=== PATIENT | female | born 1975 | race Caucasian/White ===

== ENCOUNTER → 2021-03-21 17:14 | Outpatient (CLI) | payer OTHER, SELFPAY ==
--- NOTE | ~2021-03-21 | MM_ITS ---
EXAMINATION: MM screening dayanna BI w dianne HISTORY: Screening TECHNIQUE: Craniocaudal and mediolateral oblique 3-D tomosynthesis images were obtained and synthetic 2-D images were generated. CAD analysis was submitted and interpreted. COMPARISON: 02/18/2018 BREAST PARENCHYMAL COMPOSITION: The breasts are extremely dense, which lowers the sensitivity of mamm ography. FINDINGS: There is no evidence of suspicious mass, calcification, or architectural distortion to sugg est malignancy in either breast. There has been no suspicious interval change. IMPRESSION: 1. No mammographic evidence of malignancy. 2. Recommend routine screening mammography in one year. BI-RADS Category 1: Negative Reviewed, dictated and finalized at location A.
== END ==
PROVIDERS: Visit Provider Obstetrics & Gynecology
DX: Z12.31 Encounter for screening mammogram for malignant neoplasm of breast (principal)
CPT/HCPCS: 77063; 77067

== ENCOUNTER → 2022-05-12 11:12 | Outpatient (CLI) | payer OTHER, SELFPAY ==
--- NOTE | ~2022-05-12 | MM_ITS ---
EXAMINATION: MM screening dayanna BI w dianne HISTORY: Screening mammogram TECHNIQUE: Craniocaudal and mediolateral oblique 3-D tomosynthesis images were obtained and synthetic 2-D images were generated. CAD analysis was submitted and interpreted. COMPARISON: 02/18/2021, 07/01/2019, 02/18/2018 bilateral screening mammogram examinations BREAST PARENCHYMAL COMPOSITION: The breasts are heterogeneously dense, which may obscure small masses . FINDINGS: New 2.4 x 3.4 mm circumscribed opacity in the posterior lower outer right breast, not evide nt on 03/21/2021. Diagnostic right mammogram and right breast ultrasound examination are recommended. Otherwise there is no evidence of suspicious mass, calcification, or architectural distortion to sugg est malignancy in either breast. There has been no other suspicious interval change. IMPRESSION: 1. New 2.4 x 3.4 mm circumscribed opacity in posterior lower outer right breast 2. Diagnostic right mammogram and right breast ultrasound examination are recommended BI-RADS Category 0: Incomplete: Needs additional imaging evaluation. Reviewed, dictated and finalized at location A. PING MACHINE OPERATOR IMPRESSION: 1. New 2.4 x 3.4 mm circumscribed opacity in posterior lower outer right breast 2. Diagnostic right mammogram and right breast ultrasound examination are recom mended BI-RADS Category 0: Incomplete: Needs additional imaging evaluation.
== END ==
PROVIDERS: PCP Family Medicine; Visit Provider Obstetrics & Gynecology
DX: Z12.31 Encounter for screening mammogram for malignant neoplasm of breast (principal); R92.8 Other abnormal and inconclusive findings on diagnostic imaging of breast
CPT/HCPCS: 77063; 77067

== ENCOUNTER → 2022-06-03 09:18 | Outpatient (CLI) | payer OTHER, SELFPAY ==
--- NOTE | ~2022-06-03 | MMUS_ITS ---
EXAMINATION: MM diagnostic dayanna RT w dianne, US breast RT limited HISTORY: Right breast mass on screening mammogram TECHNIQUE: Additional 3-D tomosynthesis images of the right breast were performed and synthetic 2-D i mages were generated. CAD analysis was submitted and interpreted. High resolution limited right breas t ultrasound was performed. COMPARISON: 05/12/2022, 03/21/2021, 07/01/2019 FINDINGS: MAMMOGRAPHIC FINDINGS: There is a 3 mm obscured, round, low density mass in the posterior third of the lower outer breast at the 8:00 location 5 cm from the nipple. ULTRASOUND: There is a 3 mm cyst at the 8:00 location 4 cm from the nipple corresponding to the mammographic find ing in question. Additional cysts are noted in the lower outer quadrant of the breast. At the 9:00 lo cation 5 cm from the nipple there are adjacent circumscribed para low, hypoechoic masses with posteri or acoustic enhancement and no internal vascularity measuring 1.2 x 0.4 cm and 1.8 x 0.4 cm. IMPRESSION: 1. Probably benign masses at the 9:00 location. 2. Recommend 6 month follow-up right diagnostic mammogram and ultrasound. BI-RADS category 3, probably benign findings. Reviewed, dictated and finalized at location F. NCIAL COST ANALYST IMPRESSION: 1. Probably benign masses at the 9:00 location. 2. Recommend 6 month follow-up right diagnostic mammogram and ultrasound. BI-RADS category 3, probably benign findings.
== END ==
PROVIDERS: PCP Family Medicine; Visit Provider Nurse Practitioner Obstetrics & Gynecology
DX: R92.8 Other abnormal and inconclusive findings on diagnostic imaging of breast (principal)
CPT/HCPCS: 76642; 77061; 77065; G0279

== ENCOUNTER → 2023-06-22 09:15 | Outpatient (CLI) | payer OTHER, SELFPAY ==
--- NOTE | ~2023-06-22 | MMUS_ITS ---
EXAMINATION: MM diagnostic dayanna BI w dianne, US breast BILAT complete HISTORY: Probable benign right breast masses reported on 12/08/2022 diagnostic mammogram and ultrasound examination TECHNIQUE: ML, MLO and CC 3-D tomosynthesis images of both breasts were performed and synthetic 2-D i mages were generated. CAD analysis was submitted and interpreted. High resolution bilateral complete breast ultrasound examination including all 4 quadrants and subareolar areas was performed. COMPARISON: 12/08/2022 diagnostic right mammogram and complete right breast ultrasound 06/03/2022 diagnostic right mammogram and limited right breast ultrasound 05/12/2022, 03/21/2021 bilateral screening mammogram examinations BREAST PARENCHYMAL COMPOSITION: The breasts are heterogeneously dense, which may obscure small masses . FINDINGS: MAMMOGRAPHIC FINDINGS: No suspicious mass or architectural distortion, malignant calcification, skin thickening or retractio n or significant new or developing density is detected. ULTRASOUND: There are multiple bilateral scattered cysts and complicated cysts. No suspicious mass or suspicious shadowing of either breast is detected. IMPRESSION: 1. Benign findings 2. Routine annual mammographic screening is recommended BI-RADS Category 2: Benign finding(s). Reviewed, dictated and finalized at location A. BILITY HEARING OFFICER IMPRESSION: 1. Benign findings 2. Routine annual mammographic screening is recommended BI-RADS Category 2: Benign finding(s).
== END ==
PROVIDERS: PCP Nurse Practitioner; Visit Provider Nurse Practitioner
DX: N63.0 Unspecified lump in unspecified breast (principal); R92.8 Other abnormal and inconclusive findings on diagnostic imaging of breast
CPT/HCPCS: 76641; 77062; 77066; G0279

== ENCOUNTER 2024-10-20 15:34 | Outpatient (CLI) | payer OTHER, SELFPAY ==
--- NOTE | ~2024-10-20 | MM_ITS ---
EXAMINATION: MM screening dayanna BI w dianne HISTORY: Screening TECHNIQUE: Craniocaudal and mediolateral oblique 3-D tomosynthesis images were obtained and synthetic 2-D images were generated. CAD analysis was submitted and interpreted. COMPARISON: Comparison to multiple prior studies sequentially, with oldest reviewed study dated 06/06. BREAST PARENCHYMAL COMPOSITION: Dense: The breasts are extremely dense, which lowers the sensitivity of mammography. FINDINGS: There are developing scattered is obscured masses in the right breast posteriorly. There is a focal asymmetry centrally in the left breast on MLO view, posterior third. There are no suspicious calcifications or architectural distortion. IMPRESSION: 1. Developing right breast masses. New focal left breast asymmetry. 2. Additional mammographic views and possible breast ultrasound are recommended. BI-RADS Category 0: Incomplete: Needs additional imaging evaluation. Reviewed, dictated and finalized at location B. IMPRESSION: 1. Developing right breast masses. New focal left breast asymmetry. 2. Additional mammographic views and possible breast ultrasound are recommended . BI-RADS Category 0: Incomplete: Needs additional imaging evaluation.
== END 2024-10-20 15:35 | disposition home or self-care (01) ==
LOC: MICIMG 15:35
PROVIDERS: PCP Family Medicine; Visit Provider Student in an Organized Health Care Education/Training Program
DX: Z12.31 Encounter for screening mammogram for malignant neoplasm of breast (principal); R92.8 Other abnormal and inconclusive findings on diagnostic imaging of breast
CPT/HCPCS: 77063; 77067

== ENCOUNTER 2024-11-09 13:25 | Outpatient (CLI) | payer OTHER, SELFPAY ==
--- NOTE | ~2024-11-09 | MMUS_ITS ---
EXAMINATION: MM diagnostic dayanna BI w dianne, US breast BI complete HISTORY: Follow-up breast asymmetries TECHNIQUE: Additional 3-D tomosynthesis images of the breasts were performed and synthetic 2-D images were generated. CAD analysis was submitted and interpreted. High resolution bilateral complete breas t ultrasound was performed. COMPARISON: Comparison to multiple prior studies sequentially, with oldest reviewed study dated 03/21. BREAST PARENCHYMAL COMPOSITION: Dense: The breasts are extremely dense, which lowers the sensitivity of mammography. FINDINGS: MAMMOGRAPHIC FINDINGS: No outer breast asymmetries compress with spot compatible with superimposed fibroglandular tissue. No discrete mass, architectural distortion or suspicious calcifications are identified. ULTRASOUND: Complete US of all 4 quadrants of the breast/s and retroareolar region was reviewed. Right breast: There are multiple cysts of the right breast. At 8:00, 3 cm from the nipple there is an oval hypoechoic 4 mm mass with parallel orientation, circumscribed margins and slightly irregular la teral margins. No internal vascularity or posterior features. Left breast ultrasound: Multiple cysts of the left breast. There is a cluster of microcysts at 12:00 near the nipple. There is a oval hypoechoic mass with parallel orientation and the left breast at 2:0 0, 2 cm from the nipple, likely benign. IMPRESSION: 1. Irregular shaped hypoechoic right breast mass at 8:00, 3 cm from the nipple measuring 4 mm. Ultras ound-guided biopsy recommended. Probable benign hypoechoic left breast mass at 2:00, 2 cm measuring 8 mm. Six-month follow-up ultrasound recommended. 2. Ultrasound-guided right breast biopsy recommended. BI-RADS category 4, suspicious findings. Reviewed, dictated and finalized at location A. IMPRESSION: 1. Irregular shaped hypoechoic right breast mass at 8:00, 3 cm from the nipple measuring 4 mm. Ultrasound-guided biopsy recommended. Probable benign hypoechoi c left breast mass at 2:00, 2 cm measuring 8 mm. Six-month follow-up ultrasound recommended. 2. Ultrasound-guided right breast biopsy recommended. BI-RADS category 4, suspicious findings.
--- OUTSIDE RECORDS SUMMARY | 2024-11-09 13:36 | XMS_ITS | Referral Summary ---
Author Organization [address] Address [address] [place] [id number] Care Team Providers Care Microsoft Windows Engineer Name Role Phone Maame Redman MD Primary Care Provider [phone] Allergies No known active allergies Medications No known medications Active Problems No known active problems Social History Tobacco Use Types Packs/Day Years Used Date Smoking Tobacco: Former Cigarettes Tobacco Cessation:Counseling Given: Not Answered Personal Safety Answer Date Recorded Getting School Help Needed Not on file 07/12 Comments Unknown Sex and Gender Information Value Date Recorded Sex Assigned at Not on file Legal Sex Female 9:08 PM SUMMER SCHOOL COORDINATOR Gender Identity Not on file Sexual Orientation Not on file Last Filed Vital Signs Vital Sign Reading Time Taken Comments Blood Pressure 106/82 08/15/2022 9:45 AM SUMMER SCHOOL COORDINATOR Pulse 76 08/15/2022 9:45 AM SUMMER SCHOOL COORDINATOR Temperature 36.8 C (98.2 F) 08/15/2022 9:45 AM SUMMER SCHOOL COORDINATOR Respiratory Rate 18 08/15/2022 9:45 AM SUMMER SCHOOL COORDINATOR Oxygen Saturation 98% 08/15/2022 9:45 AM SUMMER SCHOOL COORDINATOR Inhaled Oxygen Concentration - - Weight 70.3 kg (155 lb) 08/15/2022 9:45 AM SUMMER SCHOOL COORDINATOR Height 172.7 cm (5' 8 ) 08/15/2022 9:45 AM SUMMER SCHOOL COORDINATOR Body Mass Index 23.57 08/15/2022 9:45 AM SUMMER SCHOOL COORDINATOR Plan of Treatment Not on file Care Teams Microsoft Windows Engineer Relationship Specialty Start Date End Date Maame Redman MD PCP - General Family Medicine 08/15/22
--- OUTSIDE RECORDS SUMMARY | 2024-11-09 13:36 | XMS_ITS | Clinical Summary ---
Author Organization [address] Address [address] [place] [id number] Care Team Providers Care Licensing Director Name Role Phone Maame Redman MD Primary Care Provider [phone] Allergies No known active allergies Medications No [...] on file Legal Sex Female 9:08 PM CORRESPONDENCE SPECIALIST Gender Identity Not on file Sexual Orientation Not on file Obstetrics History Last Filed Vital Signs Vital Sign Reading Time Taken Comments Blood Pressure 106/82 08/15/2022 9:45 AM CORRESPONDENCE SPECIALIST Pulse 76 08/15/2022 9:45 AM CORRESPONDENCE SPECIALIST Temperature 36.8 C (98.2 F) 08/15/2022 9:45 AM CORRESPONDENCE SPECIALIST Respiratory Rate 18 08/15/2022 9:45 AM CORRESPONDENCE SPECIALIST Oxygen Saturation 98% 08/15/2022 9:45 AM CORRESPONDENCE SPECIALIST Inhaled Oxygen Concentration - - Weight 70.3 kg (155 lb) 08/15/2022 9:45 AM CORRESPONDENCE SPECIALIST Height 172.7 cm (5' 8 ) 08/15/2022 9:45 AM CORRESPONDENCE SPECIALIST Body Mass Index 23.57 08/15/2022 9:45 AM CORRESPONDENCE SPECIALIST Plan of Treatment Health Maintenance Due Date Last Done Comments Breast Cancer Screening-Mammogram 1977 Cervical Cancer Screening 1977 Colon Cancer Screening-Colonoscopy 1977 Depression Screening 1977 Hepatitis C Screening 1977 DTaP/Tdap/Td Vaccine (1 - Tdap) 1988 Hepatitis B Screening 1995 Regular Well Visit/Exam 18-64 1995 Influenza Vaccine (#1) 2024 Pneumococcal vaccine <65 Aged Out No longer eligible based on patient's age to complete this topic Care Teams Licensing Director Relationship Specialty Start Date End Date Maame Redman MD PCP - General Family Medicine 08/15/22
--- OUTSIDE RECORDS SUMMARY | 2024-11-09 13:36 | XMS_ITS | Clinical Summary ---
[facility] Address [address] [place] [address] Phone Care Team Providers Care Health Physics Technician Name Role Phone Unavailable Primary Care Provider Unavailabl e Medications No known medications Active Problems No known active problems Social History Tobacco Use Types Packs/Day Years Used Date Smoking Tobacco: Never Smokeless Tobacco: Never Tobacco Cessation:Counseling Given: Not Answered Comments Unknown Sex and Gender Information Value Date Recorded Sex Assigned at Not on file Legal Sex Female 10:42 AM MILITARY ADMINISTRATIVE TECHNICIAN Gender Identity Not on file Sexual Orientation Not on file Last Filed Vital Signs Vital Sign Reading Time Taken Comments Blood Pressure 106/78 06/19/2022 1:30 PM MILITARY ADMINISTRATIVE TECHNICIAN Pulse 69 06/19/2022 1:30 PM MILITARY ADMINISTRATIVE TECHNICIAN Temperature 36.9 C (98.4 F) 06/19/2022 1:30 PM MILITARY ADMINISTRATIVE TECHNICIAN Respiratory Rate - - Oxygen Saturation 97% 06/19/2022 1:30 PM MILITARY ADMINISTRATIVE TECHNICIAN Inhaled Oxygen Concentration - - Weight 72.6 kg (160 lb) 06/19/2022 1:30 PM MILITARY ADMINISTRATIVE TECHNICIAN Height 172.7 cm (5' 8 ) 06/19/2022 1:30 PM MILITARY ADMINISTRATIVE TECHNICIAN Body Mass Index 24.33 06/19/2022 1:30 PM MILITARY ADMINISTRATIVE TECHNICIAN Plan of Treatment Health Maintenance Due Date Last Done Comments DTAP/TDAP/TD VACCINES (1 - Tdap) 1996 HEPATITIS B VACCINES (1 of 3 - 19+ 3-dose series) 1996 HPV/Cotest (21-29) 1998 CERVICAL CANCER SCREENING 2007 HPV/Cotest (30-65) 2007 PAP SMEAR 2007 COLORECTAL SCREENING 2022 Colorectal Cancer Screening 2022 FIT-DNA Q 3 years 2022 FIT/FOBT Q 1 year 2022 Flex Sig/CT Colonography Q 5 years 2022 BREAST CANCER SCREENING 06/03/2023 06/03/20 22, 06/03/2022, 05/12/2022, Additional history exists INFLUENZA VACCINE (#1) 2024 Procedures Procedure Name Priority Date/Time Associated Diagnosis Comments MAMMO 3D ADAIR DIAGNOSTIC MARY AT W OR WO CAD Routine 06/03/2022 from Last 3 Months or Most Recently Relevant to Health Maintenance Results * MAMMO DIAG BILAT 3D ADAIR W OR WO CAD (06/03/2022) Anatomical Region Laterality Modality Breast Bilateral Mammography us Abstract Provider MAMMO ORDERABLES Final Result from Last 3 Months or Most Recently Relevant to Health Maintenance
--- OUTSIDE RECORDS SUMMARY | 2024-11-09 13:36 | XMS_ITS | Clinical Summary ---
Author Organization [facility] [employer] Address [address] [place] [address] Care Team Providers Care Shoulder Sawyer Name Role Phone Unavailable Primary Care Provider Unavailabl e Source Comments [facility] [facility],non-owned Affiliates and Associated Physician Practices is amultiple site organization consisting of ambulatory clinics and hospital sitesin [place], [place], [place] and [place]. This disclosure is being madepursuant to the Care Everywhere program and may not contain all information available regarding this patient. Last updated 18.[facility] [facility] Allergies No known active allergies Medications * Be aware that medications may not be up to date on this document. Alwaysverify current medications with the patient. No known medications Social History Tobacco Use Types Packs/Day Years Used Date Smoking Tobacco: Never Smokeless Tobacco: Never Comments Unknown Sex and Gender Information Value Date Recorded Sex Assigned at Not on file Legal Sex Female 8:46 PM BARGE MASTER Gender Identity Not on file Sexual Orientation Not on file Last Filed Vital Signs Vital Sign Reading Time Taken Comments Blood Pressure 110/62 06/17/2017 10:45 AM BARGE MASTER Pulse 78 06/17/2017 10:45 AM BARGE MASTER Temperature 37.3 C (99.1 F) 06/17/2017 10:45 AM BARGE MASTER Respiratory Rate 20 06/17/2017 10:45 AM BARGE MASTER Oxygen Saturation - - Inhaled Oxygen Concentration - - Weight 74.8 kg (165 lb) 06/17/2017 10:45 AM BARGE MASTER Height - - Body Mass Index - - Plan of Treatment Health Maintenance Due Date Last Done Comments COLOGUARD (AGES 45-75) - COL ON CA SCREENING 1977 COLON MONITORING 1977 COLONOSCOPY - COLON CA SCREENING 1977 CT COLONOGRAPHY - COLON CA SCREENING 1977 Colorectal Cancer Screening 1977 FIT - COLON CA SCREENING 1977 FLEX SIG - COLON CA SCREENING 1977 LIPID TESTING 1977 MAMMOGRAM 1977 HIV SCREENING 1992 HEPATITIS C SCREENING 05/31/1995 DTAP/TDAP/TD VACCINES (1 - Tdap) 1996 HEPATITIS B VACCINE (1 of 3 - 19+ 3-dose series) 1996 COVID-19 VACCINE (1 - 2023-2 5 season) 2024 DEPRESSION SCREENING 07/06/2024 INFLUENZA VACCINE (Season Ended) 2025 ZOSTER VACCINE (1 of 2) 2027 HIB VACCINE Aged Out No longer eligi ble based on patient's age to complete this topic HPV VACCINE Aged Out No longer eligi ble based on patient's age to complete this topic MENINGOCOCCAL (Group B) VACC INE SHARED DECISION-MAKING Aged Out No longer eligibl e based on patient's age to complete this topic MENINGOCOCCAL GROUPS A/C/Y/W VACCINE Aged Out No longer eligible b ased on patient's age to complete this topic PNEUMOCOCCAL VACCINE Aged Out No long er eligible based on patient's age to complete this topic
--- OUTSIDE RECORDS SUMMARY | 2024-11-09 13:36 | XMS_ITS | Data Portability ---
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 [address], [facility] 06/08/2023 13:43:23 05/16/2024 text/html Annual GYNReport ed bypatient.History:no gynecologic complaints Menstrual cycle:Normal menses Urinary symptoms:No hematuria; No incontinence Vulva:No genital lesion Vagina:Normal vaginal discharge Breast:No breast pain; No breast lump; No nipple discharge Current Contraception:Condom s Sexual complaints:No sexual complaints; No pain during intercourse; Normal libido Menopausal Symptoms:No menopausal symptoms; Normal vaginal lubrication Psychological symptoms:No depression; No anxiety; No PMDD Preventive measures:Encourage self breast examination; Encourage regular exercise; Encourage no tobacco use; Encourage regular mammograms starting age 40 Patient presents for annual well woman exam. Patient denies concerns today.Patient to have breast exam, pelvic exam, and pap smear through health department. DELORES LEOS NP [address], [place], [address], [facility] 05/16/2024 12:59:59 OBGyn Episode Ob Episode Information Episode Created Date Number of Fetuses Patient Bloodtype Patient rh Status Prepregnancy Weight lbs Domestic Partner Domestic Partner Phone Father Name Vocational Rehabilitation Consultant Status 02/26/20 21 1 CLOSED Fetus Data First Name Last Name Admitted to NICU Weight (g) Sex Living Outcome Pediatric Complications Fetus ID Race Codes Race Delivery Type [id number] M [id number] Vaginal Delivery Pernell Calculation Initial Pernell Date Initial Exam Date Initial Exam Provider Initial Ultrasound Date Last Menstrual Period Date Ultra Sound Weeks Gestation 0 Eighteen To Twenty Week Pernell Update Ultra Sound Date Fundal Height At Umbil Quickening Date Ultra Sound Latest Weeks Gestation Final Pernell Confirmed By Final Pernell Confirmed Date Final Pernell Date Ultra Sound Latest Days Gestation 0 0 Menstrual History Last Menstrual Date Menses Monthly On Bcp Conception Prior Menses Frequency Hcg Plus Date Menarche Onset Age Delivery Information Delivery Date Delivery Type Labor Anesthesia Weeks Gestation Incision Type Labor Labor Length Hrs Delivered By Post Complications Tubal Sterilization Discharge Date Comments 7 39 Discharge Information Feeding Method Contraceptive Method Maternal HG B and HCT Levels Ob Episode Information Episode Created Date Number of Fetuses Patient Bloodtype Patient rh Status Prepregnancy Weight lbs Domestic Partner Domestic Partner Phone Father Name Vocational Rehabilitation Consultant Status 02/26/20 21 1 CLOSED Fetus Data First Name Last Name Admitted to NICU Weight (g) Sex Living Outcome Pediatric Complications Fetus ID Race Codes Race Delivery Type , Induced [id number] Pernell Calculation Initial Pernell Date Initial Exam Date Initial Exam Provider Initial Ultrasound Date Last Menstrual Period Date Ultra Sound Weeks Gestation 0 Eighteen To Twenty Week Pernell Update Ultra Sound Date Fundal Height At Umbil Quickening Date Ultra Sound Latest Weeks Gestation Final Pernell Confirmed By Final Pernell Confirmed Date Final Pernell Date Ultra Sound Latest Days Gestation 0 0 Menstrual History Last Menstrual Date Menses Monthly On Bcp Conception Prior Menses Frequency Hcg Plus Date Menarche Onset Age Delivery Information Delivery Date Delivery Type Labor Anesthesia Weeks Gestation Incision Type Labor Labor Length Hrs Delivered By Post Complications Tubal Sterilization Discharge Date Comments 4 Discharge Information Feeding Method Contraceptive Method Maternal HG B and HCT Levels Ob Episode Information Episode Created Date Number of Fetuses Patient Bloodtype Patient rh Status Prepregnancy Weight lbs Domestic Partner Domestic Partner Phone Father Name Vocational Rehabilitation Consultant Status 02/26/20 21 1 CLOSED Fetus Data First Name Last Name Admitted to NICU Weight (g) Sex Living Outcome Pediatric Complications Fetus ID Race Codes Race Delivery Type [phone] M [id number] Vaginal Delivery Pernell Calculation Initial Pernell Date Initial Exam Date Initial Exam Provider Initial Ultrasound Date Last Menstrual Period Date Ultra Sound Weeks Gestation 0 Eighteen To Twenty Week Pernell Update Ultra Sound Date Fundal Height At Umbil Quickening Date Ultra Sound Latest Weeks Gestation Final Pernell Confirmed By Final Pernell Confirmed Date Final Pernell Date Ultra Sound Latest Days Gestation 0 0 Menstrual History Last Menstrual Date Menses Monthly On Bcp Conception Prior Menses Frequency Hcg Plus Date Menarche Onset Age Delivery Information Delivery Date Delivery Type Labor Anesthesia Weeks Gestation Incision Type Labor Labor Length Hrs Delivered By Post Complications Tubal Sterilization Discharge Date Comments 1 40 Discharge Information Feeding Method Contraceptive Method Maternal HG B and HCT Levels
== END 2024-11-09 13:26 | disposition home or self-care (01) ==
LOC: ANHIMG 13:26
PROVIDERS: PCP Family Medicine; Visit Provider Student in an Organized Health Care Education/Training Program
DX: R92.2 Inconclusive mammogram (principal); R92.8 Other abnormal and inconclusive findings on diagnostic imaging of breast
CPT/HCPCS: 76641; 77062; 77066; G0279

== ENCOUNTER 2024-12-08 11:04 | Outpatient (CLI) | payer OTHER, SELFPAY ==
--- NOTE | ~2024-12-08 | MR_ITS ---
Bilateral Breast MRI with and without Gadolinium Indication: 49-year-old female with family history of breast cancer in mother. In addition, recent di agnostic mammography and ultrasound examination completed on 11/09/2024 showed an irregular shaped hypo echoic right breast mass at 8:00 location recommended for ultrasound-guided biopsy and a probably louie ign hypoechoic left breast mass at 12:00 location. She has greater than 20% lifetime risk of breast c ancer. She presents for problem solving bilateral breast MR. Technique: Bilateral breast MRI was performed with the patient in the prone projection using a dedica solange breast coil and parallel imaging. The following sequences were obtained: Axial T1-weighted imagin g, T2 fat-sat imaging, and axial fat-saturated 3-D SPGR imaging before and and at 1 minute intervals for 4 time points after the intravenous administration of 20 cc of gadolinium. Subtraction imaging w as performed. Interpretation is being performed with the benefit of [employer]. Right breast: There is mild background parenchymal enhancement. There is prominent background parench ymal nodular enhancement pattern. No suspicious postcontrast enhancement is seen. There is no abnorma l enhancement in the area of mammographic or sonographic abnormality. No abnormal skin thickening, pe ctoralis muscle enhancement, or abnormal lymphadenopathy is identified. Left breast: There is mild background parenchymal enhancement. Prominent background pattern, nodular enhancement pattern is noted. No suspicious postcontrast enhancement is seen. No suspicious abnormali ty seen in the area of mammographic or sonographic abnormality. No abnormal skin thickening, pectoral is muscle enhancement, or abnormal lymphadenopathy is identified. Impression: 1. No MRI evidence of malignancy in either breast. There is no MRI abnormality that correlates to the areas of concern on the mammogram and sonographic examination. 2. The chest wall and axillary portion of the examination unremarkable. Recommendation: There is existing recommendation for biopsy of right breast 8:00 location and 6 month follow-up of le ft breast 2:00 lesion. Consider high-risk screening bilateral breast MRI Reviewed, dictated and finalized at location B. Impression: 1. No MRI evidence of malignancy in either breast. There is no MRI abnormality that correlates to the areas of concern on the mammogram and sonographic examin ation. 2. The chest wall and axillary portion of the examination unremarkable. Recommendation: There is existing recommendation for biopsy of right breast 8:00 location and 6 month follow-up of left breast 2:00 lesion. Consider high-risk screening bilateral breast MRI
--- OUTSIDE RECORDS SUMMARY | 2024-12-08 12:14 | XMS_ITS | Clinical Summary ---
Author Organization [address] Address [address] [place] [address] Care Team Providers Care Training Instructor Name Role Phone Maame Redman MD Primary Care Provider [phone] Allergies No known active allergies Medications No [...] on file Legal Sex Female 9:08 PM EXPLOSIVE OPERATOR Gender Identity Not on file Sexual Orientation Not on file Obstetrics History Last Filed Vital Signs Vital Sign Reading Time Taken Comments Blood Pressure 106/82 08/15/2022 9:45 AM EXPLOSIVE OPERATOR Pulse 76 08/15/2022 9:45 AM EXPLOSIVE OPERATOR Temperature 36.8 C (98.2 F) 08/15/2022 9:45 AM EXPLOSIVE OPERATOR Respiratory Rate 18 08/15/2022 9:45 AM EXPLOSIVE OPERATOR Oxygen Saturation 98% 08/15/2022 9:45 AM EXPLOSIVE OPERATOR Inhaled Oxygen Concentration - - Weight 70.3 kg (155 lb) 08/15/2022 9:45 AM EXPLOSIVE OPERATOR Height 172.7 cm (5' 8) 08/15/2022 9:45 AM EXPLOSIVE OPERATOR Body Mass Index 23.57 08/15/2022 9:45 AM EXPLOSIVE OPERATOR Plan of Treatment Health Maintenance Due Date Last Done Comments Breast Cancer Screening-Mammogram 1977 Cervical Cancer Screening 1977 Colon Cancer Screening-Colonoscopy 1977 Depression Screening 1977 Hepatitis C Screening 1977 DTaP/Tdap/Td Vaccine (1 - Tdap) 1988 Hepatitis B Screening 1995 Regular Well Visit/Exam 18-64 1995 Influenza Vaccine (Season Ended) 2025 Pneumococcal vaccine <65 Aged Out No longer eligible based on patient's age to complete this topic Care Teams Training Instructor Relationship Specialty Start Date End Date Maame Redman MD PCP - General Family Medicine 08/15/22
--- OUTSIDE RECORDS SUMMARY | 2024-12-08 12:14 | XMS_ITS | Referral Summary ---
Author Organization [address] Address [address] [place] [address] Care Team Providers Care Toy Assembly Supervisor Name Role Phone Maame Redman MD Primary Care Provider [phone] Allergies No known active allergies Medications No [...] on file Legal Sex Female 9:08 PM ADMINISTRATOR SOCIAL WELFARE Gender Identity Not on file Sexual Orientation Not on file Last Filed Vital Signs Vital Sign Reading Time Taken Comments Blood Pressure 106/82 08/15/2022 9:45 AM ADMINISTRATOR SOCIAL WELFARE Pulse 76 08/15/2022 9:45 AM ADMINISTRATOR SOCIAL WELFARE Temperature 36.8 C (98.2 F) 08/15/2022 9:45 AM ADMINISTRATOR SOCIAL WELFARE Respiratory Rate 18 08/15/2022 9:45 AM ADMINISTRATOR SOCIAL WELFARE Oxygen Saturation 98% 08/15/2022 9:45 AM ADMINISTRATOR SOCIAL WELFARE Inhaled Oxygen Concentration - - Weight 70.3 kg (155 lb) 08/15/2022 9:45 AM ADMINISTRATOR SOCIAL WELFARE Height 172.7 cm (5' 8) 08/15/2022 9:45 AM ADMINISTRATOR SOCIAL WELFARE Body Mass Index 23.57 08/15/2022 9:45 AM ADMINISTRATOR SOCIAL WELFARE Plan of Treatment Not on file Care Teams Toy Assembly Supervisor Relationship Specialty Start Date End Date Maame Redman MD PCP - General Family Medicine 08/15/22
--- OUTSIDE RECORDS SUMMARY | 2024-12-08 12:14 | XMS_ITS | Clinical Summary ---
Author Organization [facility] Address [address] [place] [address] Care Team Providers Care Stone Grader Name Role Phone Unavailable Primary Care Provider Unavailabl e Source Comments [facility],non-owned Affiliates and Associated Physician Practices is amultiple site organization consisting of ambulatory clinics and hospital sitesin [place], [place], [place] and [place]. This disclosure is being madepursuant to the Care Everywhere program and may not contain all information available regarding this patient. Last updated 18.[facility] Allergies No known active allergies Medications * [...] on file Legal Sex Female 8:46 PM STOCK CONTROLLER Gender Identity Not on file Sexual Orientation Not on file Last Filed Vital Signs Vital Sign Reading Time Taken Comments Blood Pressure 110/62 06/17/2017 10:45 AM STOCK CONTROLLER Pulse 78 06/17/2017 10:45 AM STOCK CONTROLLER Temperature 37.3 C (99.1 F) 06/17/2017 10:45 AM STOCK CONTROLLER Respiratory Rate 20 06/17/2017 10:45 AM STOCK CONTROLLER Oxygen Saturation - - Inhaled Oxygen Concentration - - Weight 74.8 kg (165 lb) 06/17/2017 10:45 AM STOCK CONTROLLER Height - - Body Mass Index - [...]
--- OUTSIDE RECORDS SUMMARY | 2024-12-08 12:14 | XMS_ITS | Clinical Summary ---
[facility] Address [address] [place] [address] Phone Care Team Providers Care Obstetrics Gyn Name Role Phone Unavailable Primary Care Provider Unavailabl e Medications No known medications Active Problems No known active problems Social History Tobacco Use Types Packs/Day Years Used Date Smoking Tobacco: Never Smokeless Tobacco: Never Tobacco Cessation:Counseling Given: Not Answered Comments Unknown Sex and Gender Information Value Date Recorded Sex Assigned at Not on file Legal Sex Female 10:42 AM JUDICIAL CLERK Gender Identity Not on file Sexual Orientation Not on file Last Filed Vital Signs Vital Sign Reading Time Taken Comments Blood Pressure 106/78 06/19/2022 1:30 PM JUDICIAL CLERK Pulse 69 06/19/2022 1:30 PM JUDICIAL CLERK Temperature 36.9 C (98.4 F) 06/19/2022 1:30 PM JUDICIAL CLERK Respiratory Rate - - Oxygen Saturation 97% 06/19/2022 1:30 PM JUDICIAL CLERK Inhaled Oxygen Concentration - - Weight 72.6 kg (160 lb) 06/19/2022 1:30 PM JUDICIAL CLERK Height 172.7 cm (5' 8) 06/19/2022 1:30 PM JUDICIAL CLERK Body Mass Index 24.33 06/19/2022 1:30 PM JUDICIAL CLERK Plan of Treatment Health Maintenance Due Date [...]
--- OUTSIDE RECORDS SUMMARY | 2024-12-08 12:14 | XMS_ITS | Data Portability ---
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 Patient will come back in a year unless there are new symptoms. Not available 03/24/2022 12:00:06 05/16/2024 05/16/2024 Annual gynecological exam performed. Patient will come back in a year unless there are new symptoms. [email or web address] Not available 05/04/2024 15:18:24 Plan of Treatment Reminders Order Date Submit Date Provider Last Modified By Organization Details Last Modified Time Details Appointments None recorded. Lab pap, IG + HR HPV 2023 [facility] [employer] [facility], [address], [place], [address], 10:31:49 Referral None recorded. Procedures None recorded. Surgeries None recorded. Imaging MAMMO, screening, digital, bilateral 2023 024 [facility], [address], [address], [place], [address], 5 17:19:43 MAMMO, diagnostic , digital, bilateral 2022 023 [facility], [address], [place], [address], 4 05:01:34 US, breast, bilateral 2022 023 [facility], [address], [place], [address], 4 05:01:34 MAMMO, screening, bilateral 2021 022 [facility], [address], [place], [address], 10:16:26 Medication Orders None recorded. Patient TargetsNo targets recorded. Patient InstructionsNo instructions recorded. Reason for Referral None Reported. Results Created Date Observation Date Name Description Value Unit Range Abnormal Flag Note LastModifiedBy Organization Detail LastModifiedTime 03/22/20 21 03/21/2021 MAMMO , scree raina, bilat eral No observ ation record ed. [facility] [address], [place], [address], 03/22/2021 22:41:40 05/12/20 22 05/12/2022 MAMMO , scree raina, bilat eral No observ ation record ed. [address], [place], [address], 05/14/2022 10:16:26 05/12/20 22 05/12/2022 MAMMO , scree raina, bilat eral No observ ation record ed. [address], [place], [address], 05/14/2022 14:29:44 11/30/06/03/2022 MAMMO , diagn ostic , unila teral No observ ation record ed. [email or web address] [place] [facility] [address], [place], [address], 08/27/2022 17:20:47 06/22/20 23 06/22/2023 MAMMO , diagn ostic , digit al, bilat eral No observ ation record ed. [email or web address] [place] [facility] [address], [place], [address], 07/07/2023 11:38:59 10/21/19 25 10/20/2024 MAMMO , scree raina, digit al, bilat eral No observ ation record ed. [email or web address] [place] [facility] [address], [place], [address], 11/08/2024 15:43:03 10/22/19 25 10/20/2024 MAMMO , scree raina, digit al, bilat eral No observ ation record ed. [email or web address] [place] [address], [place], [address], 11/08/2024 16:21:42 11/10/19 25 11/09/2024 MAMMO , diagn ostic , digit al, bilat eral No observ ation record ed. [email or web address] [place] [address], [place], [address], 11/14/2024 10:35:39 Result Notes None recorded. Problems Name Problem SNOMED Code Status Onset Date Resolution Date Notes Provider Name and Address Organization Details Recorded Time Benign neoplasm of body of uterus 35196150 Completed 201302/25/2021 Benign neoplasm of corpus uteri;Pr actice ID: 0001 Eliane Mills MD [address], [place], [address], [facility] 12:11:27 Irregula r periods 29211518 Completed 201302/25/2021 Irregula r menstrua l cycle;Pr actice ID: 0001 Eliane Mills MD [address], [place], [address], [facility] 1 12:11:37 Menstrua tion finding Completed 201302/25/2021 Menorrha kal Excessiv e Menstrua tion;Pra ctice ID: 0001 Eliane Mills MD [address], [place], [address], [facility] 1 12:11:39 Adult health examinat ion Completed 201402/25/2021 Routine general medical examinat ion at a health care facility ;Practic e ID: 0001 Eliane Mills MD [address], [place], [address], [facility] 12:11:25 Speciali zed medical examinat ion Completed 201402/25/2021 Routine gynecolo gical examinat ion;Prac jerrell ID: 0001 Eliane Mills MD [address], [place], [address], [facility] 1 12:12:04 Screenin g for malignan t neoplasm of cervix Completed 201402/25/2021 Pap Smear;Pr actice ID: 0001 Eliane Mills MD [address], [place], [address], [facility] 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 12:12:[address] Concept Completed 201702/25/2021 Encntr for general adult medical exam w/o abnormal findings ;Practic e ID: 0001 Eliane Mills MD [address], [place], [address], [facility] 12:12:00 Screenin g for malignan t neoplasm of rectum Completed 201702/25/2021 Encounte r for screenin g for malignan t neoplasm of rectum;P ractice ID: 0001 Eliane Mills MD [address], [place], [address], [facility] 12:11:56 Premenst rual tension syndrome 13252231 Completed 201402/25/2021 PMS;Jayce rded Elsewher e: No Locat ion: [facility] S ource: EHR Supply And Distribution Manager elizabeth: N Chiekh ce ID: 0001 Enrique lable Time: 10:00:00 AM Eliane Mills MD [address], [place], [address], [facility] 12:11:50 Speciali zed medical examinat ion Completed 201105/03/2012 Gynecolo gical Examinat ion;Jayce rded Elsewher e: No Locat ion: [facility] S ource: EHR Supply And Distribution Manager elizabeth: N Cheikh ce ID: 0001 Enrique lable Time: 10:30:[address] AM MD [address], [place], [address], [facility] 12:12:04 Postoper ative follow-u p visit Completed 201302/25/2021 Follow-u p examinat ion, followin g unspecif ied surgery; Recorded Elsewher e: No Locat ion: [facility] S ource: EHR Supply And Distribution Manager elizabeth: N Cheikh ce ID: 0001 Enrique lable Time: 10:00:00 AM Eliane Mills MD [address], [place], [address], [facility] 1 12:11:45 Hypertro phy of uterus 149050220 Completed 201302/25/2021 Hypertro phy of uterus;R ecorded Elsewher e: No Locat ion: [facility] S ource: EHR Supply And Distribution Manager elizabeth: N Practi ce ID: 0001 Enrique lable Time: 11:00:00 AM Eliane Mills MD [address], [place], [address], [facility] 1 12:11:31 Screenin g for malignan t neoplasm of cervix Completed 201005/03/2012 Screenin g for malignan t neoplasm s of the cervix;R ecorded Elsewher e: No Locat ion: [facility]: N Barrieti ce ID: 0001 Enrique lable Time: 01:15:00 PM Eliane Mills MD [address], [place], [address], [facility] 1 12:11:54 Routine antenata l care Completed 201002/25/2021 Supervis ion of other normal pregnanc y;Practi ce ID: 0001 Eliane Mills MD [address], [place], [address], [facility] 1 12:11:52 Delivery normal 82260453 Completed 201002/25/2021 Normal delivery ;Practic e ID: 0001 Eliane Mills MD [address], [place], [address], [facility] 12:11:30 Single live from singleto n pregnanc y 623849836 Completed 201002/25/2021 Mother with single liveborn ;Practic e ID: 0001 Eliane Mills MD [address], [place], [address], [facility] 12:11:58 Postpart um care Completed 201002/25/2021 Routine postpart um follow-u p;Practi ce ID: 0001 Eliane Mills MD [address], [place], [address], [facility] 12:11:47 Inflamma tory disorder of breast 732359783 Completed 201002/25/2021 Inflamma tory disease of breast;P ractice ID: 0001 Eliane Mills MD [address], [place], [address], [facility] 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 12:11:43 Problem Notes None recorded. Procedures Surgical History Date Name Laterality Status Provider Name and Address Organization Details Recorded Time 06/03/20 22 Date of Last Mammogram completed Kizzy White [facility] 05/16/2024 12:15:29 04/21/20 19 Date of Last Pap Smear completed Amanda Obrien [facility] 03/24/2022 12:01:39 07/06/19 14 Hysteroscopy completed Belia Lilly [facility] 06/05/2023 19:12:13 07/06/18 94 termination of completed Belia Lilly [facility] 06/05/2023 19:12:22 Imaging Results None recorded. Procedure Notes None recorded. Medical Equipment None [...] IN THE MORNING 08/15 completed Prescrib ed Elsewher e: No Locat ion: Carlamoira linda [facility] odify By: subhash padilla DateTime : 01/16/20 15 11:20:36 AM Not Available Not Available Not Available NuvaRing 0.12 mg-0.015 mg/24 hr vaginal insert 1 vaginal ring by vaginal route every month leave in place for 3 weeks, remove for 1 week 08/25 completed Prescrib ed Elsewher e: No Locat ion: Mario mckeon [facility] odify By: subhash padilla DateTime : 08/15/19 16 01:00:00 PM Not Available Not Available Not Available Synthroid 137 mcg tablet take 1 tablet by oral route every day 04/11 completed Prescrib ed Elsewher e: Yes Loca tion: Zenonrebecca linda [facility] odify By: dory padilla DateTime : 04/15/20 11 03:38:56 PM Not Available Not Available Not Available Ortho-Cyc manny (28) 0.25 mg-35 mcg tablet take 1 tablet by oral route every day 07/13 completed Prescrib ed Elsewher e: No Locat ion: Zenon linda [facility] odify By: james andrea DateTime : 05/03/20 12 10:30:00 AM Not Available Not Available Not Available Lo Loestrin Fe 1 mg-10 mcg (24)/10 mcg (2) tablet take 1 tablet by oral route every day for 28 days 05/13 completed Prescrib ed Elsewher e: No Locat ion: Zenonrebecca linda [facility] odify By: africa padilla DateTime : 04/16/20 11 01:15:00 PM Not Available Not Available Not Available Vitals Date Recorded Body height Body mass index (BMI) Body weight Systolic blood pressure Diastolic blood pressure Provider Name and Address Organization Details Last Updated DateTime 02/25/2021 170.18 cm 25.2 kg/m2 66576.37 g 114 mm[Hg] 76 mm[Hg] Zenia Marie [facility] 1 11:46:57 Date Recorded Systolic blood pressure Diastolic blood pressure Provider Name and Address Organization Details Last Updated DateTime 03/24/2022 122 mm[Hg] 78 mm[Hg] Tracey Lauren, [facility]- [address], [place], [address], [facility] 03/25/2022 09:41:27 Date Recorded Body height Body weight Body mass index (BMI) Provider Name and Address Organization Details Last Updated DateTime 03/24/2022 171.45 cm 76530.78 g 24.7 kg/m2 Amanda Obrien [facility] 03/24/2022 12:00:57 Date Recorded Body height Body mass index (BMI) Body weight Systolic blood pressure Diastolic blood pressure Provider Name and Address Organization Details Last Updated DateTime 05/16/2024 171.45 cm 25.2 kg/m2 41008.56 g 102 mm[Hg] 70 mm[Hg] Kizzy Cindy [facility] 4 12:20:15 Date Recorded Body height Body mass index (BMI) Body weight Systolic blood pressure Diastolic blood pressure Provider Name and Address Organization Details Last Updated DateTime 06/08/2023 171.45 cm 24.8 kg/m2 94283.37 g 122 mm[Hg] 78 mm[Hg] Belia Lilly [facility] 3 12:14:31 Social History Question Answer Notes LastModified by Organizat ion Details LastModified Time Tobacco Smoking Status Never Smoker Belia Lilly [facility], [facility] 06/08/2023 12:14:58 Do You Have An Advance Directive? No Information n ot available 03/24/2022 If You Are , What Was Your Level Of Alcohol Consumption Prior To ? None [email or web address] Information not available 06/08/2023 How Many Years Have You Consumed Alcohol? 20 Information not available 06/08/2023 Are You Blind Or Do You Have Difficulty Seeing? No Information n ot available 03/24/2022 What Is Your Level Of Caffeine Consumption? Moderate Information not available 03/24/2022 How Much Tobacco Do You Chew? None Information not available 03/24/2022 In The 14 Days Before Symptom Onset, Have You Had Close Contact With A Laboratory-confirm ed COVID-19 While That Case Was Ill? No Information n ot available 03/24/2022 In The 14 Days Before [...] Of Diet Are You Following? REGULAR Information n ot available 03/24/2022 What Is The Highest Grade Or Level Of School You Have Completed Or The Highest Degree You Have Received? [id number] Information not available 03/24/2022 Are There Any Guns Present In Your [...] Information not available 03/24/2022 Do You Use Sunscreen Routinely? Yes Information not available 03/24/2022 Has Tobacco Cessation Counseling Been Provided? No [email or web address] Information not available 06/08/2023 Have You Used IV Drugs? No Information not available 03/24/2022 Sex: Unknown Functional Status Question Answer Note LastModified by Organizat ion Details LastModified Time Do you use any illicit or recreational drugs? No [email or web address] Information not available 02/25/2021 Do you or have you ever used any other forms of tobacco or nicotine? No Information not available 06/08/2023 What is your level of alcohol consumption? Occasional Information not available 03/24/2022 Are you able to walk? 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 Moderate Information not available 03/24/2022 Mental Status Question Answer Note LastModified by Organization D etails LastModified Time Do you feel stressed (tense, restless, nervous, or anxious, or unable to sleep at night)? [id number] Information not available 03/24/2022 Family History Relationship Description Onset Age of this Age Resolved Age Notes LastModified by Organization Details LastModified Time Maternal Aunt Malignant neoplasm of uterus [email or web address] Not available 06/08 12:14:57 Maternal Aunt Malignant neoplasm of ovary [email or web address] Not available 06/08 12:14:57 Maternal Grandmother Diabetes mellitus Not available 06/08 12:14:57 Maternal Grandmother Malignant tumor of breast [email or web address] Not available 06/08 12:14:57 Maternal Grandmother Hypertensive disorder [email or web address] Not available 06/08 12:14:57 Mother Malignant tumor of breast Not available 2021 12:01:11 Medical History Condition Response Allergies (Food, seasonal, environmental ) N Other N Blood Transfusion N Drug/Latex Allergies/Reactions N Breast Cancer N Dermatologic Disorders N Lung Disease N [...] SNOMED-CT Code Diagnosis ICD10 Code Diagnosis Note [id number] Eliane Mills MD [place] [address] [address] 02/25/2021 11:37:18 02/25/2021 16:15:25 Gynecologic examination 82741442 Z01.419 [id number] [facility] [address] [address] 03/24/2022 11:46:48 03/25/2022 16:28:17 Gynecologic examination 18845134 Z01.419 Suggested Calcium with Vitamin D 1200-1500m g daily. Patient advised to get an annual flu shot in the fall and she could obtain at [facility] or [facility] take care clinic. Also to obtain TDap vaccinatio n [...] bimanual exam completed- WNL Screening mammography 24 901970 Z12.31 [id number] Ailyn CindyhannaCOREEN [place] [address] [address] 06/08/2023 12:02:15 06/08/2023 14:09:07 Gynecologic examination 39879202 Z01.419 WWEBC - condoms, happy with this [...] the fall and she could obtain at [facility] or [facility] care clinic. Also to obtain TDap vaccinatio n [...] or respond to this email. Breast lump [id number] N63 .0 [id number] Steve Chambers MD [place] [address] [address] 05/16/2024 12:06:03 05/16/2024 13:01:14 Screening mammography 59704402 Z12.31 Gynecologi c examination 68350897 Z01.419 Annual gynecologi colten exam performed. Patient [...] or email. mammogram- pt to schedule through [facility] ; order given colon cancer screening - [...] ID Melendez Member ID Guarantor Name 02/25/2021 [facility] Emy R Kira [id number] Emy R Kira 03/24/2022 [facility] Emy R Kira [id number] Emy R Kira 06/08/2023 [facility] Emy R Kira [id number] Emy R Kira 05/16/2024 [facility] Emy R Kria [id number] Emy R Kira Notes Date Note Type [...] concerns-none Eliane Mills MD [address], [place], [address], [place] [facility] 02/25/2021 14:14:08 03/24/2022 text/html Annual [...] yearly pap smears (q3-5yr pap/hpv unless abn) COREEN Godfrey-BC [address], [place], [address], [facility] 03/25/2022 09:41:56 06/08/2023 text/html Annual GYNReport [...] a breast specialist 1 yr ago at [facility] for consult mother, maternal grandmother, maternal great grandmother with BC all 60smother with negative genetic testing COREEN Rogers [address], [place], [address], [facility] 06/08/2023 13:43:23 05/16/2024 text/html Annual GYNReport [...] smear through health department. DELORES LEOS NP [address], [place], [address], [facility] 05/16/2024 12:59:59 OBGyn Episode Ob Episode Information Episode Created Date Number of Fetuses Patient Bloodtype Patient rh Status Prepregnancy Weight lbs Domestic Partner Domestic Partner Phone Father Name Solar Sales Assessor Status 02/26/20 21 1 CLOSED Fetus Data First Name Last Name Admitted to NICU Weight (g) Sex Living Outcome Pediatric Complications Fetus ID Race Codes Race Delivery Type 3259.96 5704 M [id number] Vaginal Delivery Pernell Calculation Initial Pernell Date [...] Domestic Partner Domestic Partner Phone Father Name Solar Sales Assessor Status 02/26/20 21 1 CLOSED Fetus Data First Name Last Name Admitted to NICU Weight (g) Sex Living Outcome Pediatric Complications Fetus ID Race Codes Race Delivery Type , Induced [id number] Pernell Calculation Initial Pernell Date Initial Exam [...] Post Complications Tubal Sterilization Discharge Date Comments 199 4 Discharge Information Feeding Method Contraceptive Method Maternal HG B and HCT Levels Ob Episode Information Episode Created Date Number of Fetuses Patient Bloodtype Patient rh Status Prepregnancy Weight lbs Domestic Partner Domestic Partner Phone Father Name Solar Sales Assessor Status 02/26/20 21 1 CLOSED Fetus Data First Name Last Name Admitted to NICU Weight (g) Sex Living Outcome Pediatric Complications Fetus ID Race Codes Race Delivery Type 3628.73 6 M [id number] Vaginal Delivery Pernell Calculation Initial Pernell Date [...]
== END 2024-12-08 11:05 | disposition home or self-care (01) ==
PROVIDERS: PCP Family Medicine; Visit Provider Surgery
DX: N63.13 Unspecified lump in the right breast, lower outer quadrant (principal); Z12.39 Encounter for other screening for malignant neoplasm of breast; R92.8 Other abnormal and inconclusive findings on diagnostic imaging of breast; R92.343 Mammographic extreme density, bilateral breasts; Z80.3 Family history of malignant neoplasm of breast
CPT/HCPCS: 77049; A9577; C8908

== ENCOUNTER 2024-12-09 08:31 | Outpatient (CLI) | payer OTHER, SELFPAY ==
--- NOTE | ~2024-12-09 | MMUS_ITS ---
PROCEDURE: US breast biopsy RT w image, MM post biopsy diagnostic RT CLINICAL HISTORY: 49-year-old female with a suspicious irregular hypoechoic right breast mass at 8:00 , 3 cm from the nipple. She presents for ultrasound-guided core needle biopsy of the right breast mas s. COMPARISON: 11/09/2024 Following informed consent including risks, benefits, and possible complications, the patient was bro ught to the ultrasound suite. A time-out procedure was performed. A preliminary ultrasound of the ri t breast was performed, redemonstrating the targeted lesion at 8:00, 3 cm from the nipple. The patient was prepped and draped in the usual sterile fashion. 1% lidocaine was instilled into the subcutaneous tissues. 1% lidocaine with epinephrine was injected into the deep tissues just inferior to the lesion. Approximately 15cc lidocaine was administered. A small skin chago was made. Multiple co re samples were obtained with a 14-gauge biopsy needle. A post biopsy coil shaped marker was placed a t the biopsy site. Postprocedural mammogram of the right breast in craniocaudal and mediolateral projections reveal the post biopsy metal marker in good position. The patient tolerated the procedure well and was without i mmediate postprocedural complications. IMPRESSION: Successful ultrasound guided biopsy of right breast mass. A post biopsy metal marker was placed at the biopsy site, which is seen on postprocedural mammogram. The patient tolerated the procedure well without immediate postprocedure complications. The patient w as given postprocedural instructions and sent home in stable condition. Reviewed, dictated and finalized at location B. IMPRESSION: Successful ultrasound guided biopsy of right breast mass. A post bi opsy metal marker was placed at the biopsy site, which is seen on postprocedura l mammogram. The patient tolerated the procedure well without immediate postprocedure compli cations. The patient was given postprocedural instructions and sent home in sta ble condition.
--- OUTSIDE RECORDS SUMMARY | 2024-12-09 08:37 | XMS_ITS | Clinical Summary ---
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 Pulse 76 08/15/2022 9:45 AM [employer]OCKROOM WORKER Temperature 36.8 C (98.2 F) 08/15/2022 9:45 AM [employer]OCKROOM WORKER Respiratory Rate 18 08/15/2022 9:45 AM STOCKROOM WORKER Oxygen Saturation 98% 08/15/2022 9:45 AM STOCKROOM WORKER Inhaled Oxygen Concentration - - Weight 70.3 kg (155 lb) 08/15/2022 9:45 AM STOCKROOM WORKER Height 172.7 cm (5' 8) 08/15/2022 9:45 AM STOCKROOM WORKER Body Mass Index 23.57 08/15/2022 9:45 AM STOCKROOM WORKER Plan of Treatment Health Maintenance Due Date [...] age to complete this topic Care Teams Children'S Librarian Relationship Specialty Start Date End Date Maame Redman MD PCP - General Family Medicine 08/15/22
--- OUTSIDE RECORDS SUMMARY | 2024-12-09 08:37 | XMS_ITS | Clinical Summary ---
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 Gender Identity Not on file Sexual Orientation Not on file Last Filed Vital Signs Vital Sign Reading Time Taken Comments Blood Pressure 106/78 06/19/2022 1:30 PM INDUSTRIAL TECHNICIAN Pulse 69 06/19/2022 1:30 PM INDUSTRIAL TECHNICIAN Temperature 36.9 C (98.4 F) 06/19/2022 1:30 PM INDUSTRIAL TECHNICIAN Respiratory Rate - - Oxygen Saturation 97% 06/19/2022 1:30 PM INDUSTRIAL TECHNICIAN Inhaled Oxygen Concentration - - Weight 72.6 kg (160 lb) 06/19/2022 1:30 PM INDUSTRIAL TECHNICIAN Height 172.7 cm (5' 8) 06/19/2022 1:30 PM INDUSTRIAL TECHNICIAN Body Mass Index 24.33 06/19/2022 1:30 PM INDUSTRIAL TECHNICIAN Plan of Treatment Health Maintenance Due [...]
--- OUTSIDE RECORDS SUMMARY | 2024-12-09 08:37 | XMS_ITS | Referral Summary ---
Author Organization [address] Address [address] [place] [address] Care Team Providers Care Patient Intake Representative Name Role Phone Maame Redman MD Primary Care Provider Allergies No known active allergies Medications No [...] on file Legal Sex Female 9:08 PM SKI MOLDER Gender Identity Not on file Sexual Orientation Not on file Last Filed Vital Signs Vital Sign Reading Time Taken Comments Blood Pressure 106/82 08/15/2022 9:45 AM SKI MOLDER Pulse 76 08/15/2022 9:45 AM SKI MOLDER Temperature 36.8 C (98.2 F) 08/15/2022 9:45 AM SKI MOLDER Respiratory Rate 18 08/15/2022 9:45 AM SKI MOLDER Oxygen Saturation 98% 08/15/2022 9:45 AM SKI MOLDER Inhaled Oxygen Concentration - - Weight 70.3 kg (155 lb) 08/15/2022 9:45 AM SKI MOLDER Height 172.7 cm (5' 8) 08/15/2022 9:45 AM SKI MOLDER Body Mass Index 23.57 08/15/2022 9:45 AM SKI MOLDER Plan of Treatment Not on file Care Teams Patient Intake Representative Relationship Specialty Start Date End Date Maame Redman MD PCP - General Family Medicine 08/15/22
--- OUTSIDE RECORDS SUMMARY | 2024-12-09 08:37 | XMS_ITS | Clinical Summary ---
Author Organization [facility] [employer] Address [address] [place] [address] Care Team Providers Care Hollow Handle Bench Worker Name Role Phone Unavailable Primary Care Provider Unavailabl e Source Comments [facility] [employer],non-owned Affiliates and Associated Physician Practices is amultiple site organization consisting of ambulatory clinics and hospital sitesin [place], [place], [place] and [place]. This disclosure is being madepursuant to the Care Everywhere program and may not contain all information available regarding this patient. Last updated 18.[facility] [employer] Allergies No known active allergies Medications * [...] on file Legal Sex Female 8:46 PM JAIL OFFICER Gender Identity Not on file Sexual Orientation Not on file Last Filed Vital Signs Vital Sign Reading Time Taken Comments Blood Pressure 110/62 06/17/2017 10:45 AM JAIL OFFICER Pulse 78 06/17/2017 10:45 AM JAIL OFFICER Temperature 37.3 C (99.1 F) 06/17/2017 10:45 AM JAIL OFFICER Respiratory Rate 20 06/17/2017 10:45 AM JAIL OFFICER Oxygen Saturation - - Inhaled Oxygen Concentration - - Weight 74.8 kg (165 lb) 06/17/2017 10:45 AM JAIL OFFICER Height - - Body Mass Index - [...]
--- NOTE | 2024-12-09 10:48 | S_PTH ---
PATIENT: Emy Malone LOC: [facility] U#:[id number] AGE/SX: 49/F ROOM: RE12/09/[address]: Danica Lopez MD : 1975 BED: DIS: 12/09/2024 SPEC #: [id number] RECD: 12/09/24 12:47 STATUS: AMBER REQ #: [id number] JASVIR: 12/09/24 10:[address]: Danica Lopez DEPT: [facility] Surgical RECD BY: Anna Marie Fischer ENTERED: 12/09/24 12:48 SP TYPE: Surgical OTHR DR: Maame Redman, Tissues: A - Breast Biopsy Procedures: Hematoxylin and Eosin Stain Gross and Microscopic Level 4
== END 2024-12-09 08:32 | disposition home or self-care (01) ==
PROVIDERS: PCP Family Medicine; Visit Provider Surgery
DX: N63.13 Unspecified lump in the right breast, lower outer quadrant (principal); N60.01 Solitary cyst of right breast; R92.8 Other abnormal and inconclusive findings on diagnostic imaging of breast
CPT/HCPCS: 19083; 77065; 88305

== ENCOUNTER 2025-05-15 10:08 | Outpatient (CLI) | payer OTHER, SELFPAY ==
--- NOTE | ~2025-05-15 | US_ITS ---
US breast BI limited 05/15/2025 10:41 Indication: Limited bilateral breast ultrasound Procedure: Limited bilateral breast ultrasound Comparison: Ultrasound dated 11/09/2024 Findings: Right breast: At 8:00, 3 cm from the nipple there is a 6 mm cyst containing a hydroma marker from previous biopsy. Left breast: At 2:00, 2 cm from the nipple there is an oval hypoechoic parallel oriented 9 mm mass with internal cystic changes, without significant change from prior study. No internal vascularity or posterior features. Impression: 1: Probable benign bilateral breast masses. BI-RADS CATEGORY 3-PROBABLY BENIGN FINDING RECOMMENDATION: Six-month diagnostic bilateral mammogram and Limited bilateral breast ultrasound recommended. Reviewed, dictated and finalized at location B. HAIRER Impression: 1: Probable benign bilateral breast masses. BI-RADS CATEGORY 3-PROBABLY BENIGN FINDING RECOMMENDATION: Six-month diagnostic bilateral mammogram and Limited bilateral breast ultrasound recommended.
--- OUTSIDE RECORDS SUMMARY | 2025-05-15 10:55 | XMS_ITS | Clinical Summary ---
Author Organization [address] Address [address] [place] [id number] Care Team Providers Care Fishery Biologist Name Role Phone Maame Redman MD Primary Care Provider [phone] Allergies No known active allergies Medications No [...] on file Legal Sex Female 9:08 PM SALES ACTIVITY MANAGER Gender Identity Not on file Sexual Orientation Not on file Last Filed Vital Signs Vital Sign Reading Time Taken Comments Blood Pressure 106/82 08/15/2022 9:45 AM SALES ACTIVITY MANAGER Pulse 76 08/15/2022 9:45 AM SALES ACTIVITY MANAGER Temperature 36.8 C (98.2 F) 08/15/2022 9:45 AM SALES ACTIVITY MANAGER Respiratory Rate 18 08/15/2022 9:45 AM SALES ACTIVITY MANAGER Oxygen Saturation 98% 08/15/2022 9:45 AM SALES ACTIVITY MANAGER Inhaled Oxygen Concentration - - Weight 70.3 kg (155 lb) 08/15/2022 9:45 AM SALES ACTIVITY MANAGER Height 172.7 cm (5' 8) 08/15/2022 9:45 AM SALES ACTIVITY MANAGER Body Mass Index 23.57 08/15/2022 9:45 AM SALES ACTIVITY MANAGER Plan of Treatment Health Maintenance Due Date Last Done Comments Breast Cancer Screening-Mammogram 1975 Cervical Cancer Screening 1975 Colon Cancer Screening-Colonoscopy 1975 Depression Screening 1975 Hepatitis C Screening 1975 DTaP/Tdap/Td Vaccine (1 - Tdap) 1988 Hepatitis B Screening 1995 Regular Well Visit/Exam 18-64 1995 Influenza Vaccine (#1) 2025 Pneumococcal vaccine <65 Aged Out No longer eligible based on patient's age to complete this topic Care Teams Fishery Biologist Relationship Specialty Start Date End Date Maame Redman MD PCP - General Family Medicine 08/15/22
--- OUTSIDE RECORDS SUMMARY | 2025-05-15 10:55 | XMS_ITS | Clinical Summary ---
[facility] Organization [facility] Address [address] [place] [address] Phone Care Team Providers Care Grey Goods Tester Name Role Phone Unavailable Primary Care Provider Unavailabl e Medications No known medications Active Problems No known active problems Social History Tobacco Use Types Packs/Day Years Used Date Smoking Tobacco: Never Smokeless Tobacco: Never Tobacco Cessation:Counseling Given: Not Answered Comments Unknown Sex and Gender Information Value Date Recorded Sex Assigned at Not on file Legal Sex Female 10:42 AM SOLID WASTE MANAGER Gender Identity Not on file Sexual Orientation Not on file Last Filed Vital Signs Vital Sign Reading Time Taken Comments Blood Pressure 106/78 06/19/2022 1:30 PM SOLID WASTE MANAGER Pulse 69 06/19/2022 1:30 PM SOLID WASTE MANAGER Temperature 36.9 C (98.4 F) 06/19/2022 1:30 PM SOLID WASTE MANAGER Respiratory Rate - - Oxygen Saturation 97% 06/19/2022 1:30 PM SOLID WASTE MANAGER Inhaled Oxygen Concentration - - Weight 72.6 kg (160 lb) 06/19/2022 1:30 PM SOLID WASTE MANAGER Height 172.7 cm (5' 8) 06/19/2022 1:30 PM SOLID WASTE MANAGER Body Mass Index 24.33 06/19/2022 1:30 PM SOLID WASTE MANAGER Plan of Treatment Health Maintenance Due [...] 05/12/2022, Additional history exists INFLUENZA VACCINE (#1) 2025 Procedures Procedure Name Priority Date/Time Associated Diagnosis [...]
--- OUTSIDE RECORDS SUMMARY | 2025-05-15 10:55 | XMS_ITS | Clinical Summary ---
Author Organization [facility] [employer] Address [address] [place] [address] Care Team Providers Care Steam Hammer Operator Name Role Phone Unavailable Primary Care Provider Unavailabl e Source Comments [facility] [employer],non-owned Affiliates and Associated Physician Practices is amultiple site organization consisting of ambulatory clinics and hospital sitesin [place], [place], [place] and [place]. This disclosure is being madepursuant to the Care Everywhere program and may not contain all information available regarding this patient. Last updated 18.[facility] [employer] Allergies No known active allergies Medications * [...] on file Legal Sex Female 8:46 PM ETCHER APPRENTICE Gender Identity Not on file Sexual Orientation Not on file Last Filed Vital Signs Vital Sign Reading Time Taken Comments Blood Pressure 110/62 06/17/2017 10:45 AM ETCHER APPRENTICE Pulse 78 06/17/2017 10:45 AM ETCHER APPRENTICE Temperature 37.3 C (99.1 F) 06/17/2017 10:45 AM ETCHER APPRENTICE Respiratory Rate 20 06/17/2017 10:45 AM ETCHER APPRENTICE Oxygen Saturation - - Inhaled Oxygen Concentration - - Weight 74.8 kg (165 lb) 06/17/2017 10:45 AM ETCHER APPRENTICE Height - - Body Mass Index - [...] of 3 - 19+ 3-dose series) 1996 PAP SMEAR 1998 DEPRESSION SCREENING 07/06/2024 COVID-19 VACCINE (1 - 2023-2 5 season) 2025 INFLUENZA VACCINE (#1) 2025 ZOSTER VACCINE (1 of 2) 2027 [...] on patient's age to complete this topic Insurance [employer] SELF PAY NO INSURANCE Member Subscriber Plan / Payer (Ef fective for All Dates) Name:Emy Malone Member ID:Not on file Relation to Subscriber:Not on file Name:EMY MALONE Subscriber ID:Not on file (Home) Address: [address] [place] [address] Payer ID:Not on file Group ID:Not on file Type:Self Pay Address: [place], [place]
== END 2025-05-15 10:09 | disposition home or self-care (01) ==
LOC: ANHFOHIMG 10:13
PROVIDERS: PCP Family Medicine; Visit Provider Surgery
DX: N60.01 Solitary cyst of right breast (principal); N60.02 Solitary cyst of left breast
CPT/HCPCS: 76642